=== PATIENT | female | born 1960 | race Asian ===

== ENCOUNTER → 2020-05-20 | Outpatient (CLI) | payer OTHER | LOC: COL.RAD 07:28 | DX: R10.84 Generalized abdominal pain (principal) ==

== ENCOUNTER → 2020-06-11 | Outpatient (CLI) | payer OTHER | LOC: COL.RAD 07:43 | DX: K21.9 Gastro-esophageal reflux disease without esophagitis (principal) ==

== ENCOUNTER → 2021-04-07 | Outpatient (CLI) | payer OTHER ==
[~2021-04-07] VITALS: Ht 177.8 cm; Wt 71.8 kg
[~2021-04-07] MED LIST: DIOVAN 40MG40 MG PO; JARDIANCE25 PO
[2021-04-07 10:42] VITALS: BP 154/94; PULSE 79
== END ==
LOC: COL.CARD 03-29 10:45
DX: E78.2 Mixed hyperlipidemia (principal); E78.00 Pure hypercholesterolemia, unspecified; E11.9 Type 2 diabetes mellitus without complications; R07.9 Chest pain, unspecified
CPT/HCPCS: A9500

== ENCOUNTER 2023-01-25 06:20 | Emergency (ER) | payer SELFPAY ==
[~2023-01-25] VITALS: Ht 177.8 cm; Wt 72.7 kg
[2023-01-25 06:44] LABS: BASO % 0.3 % (0.0-2.0); EOS # 0.1 K/mm3 (0.0-0.7); EOS % 1.2 % (0.0-4.0); GRAN # 5.8 K/mm3 (1.4-6.5); GRAN % 77.6 % (42.2-75.2); HEMOGLOBIN 12.8 g/dl (12.5-16.0); LYMPH # 1.1 K/mm3 (1.2-3.4); LYMPH % 14.2 % (20.0-51.0); MEAN CELL VOLUME 90 fl (80.0-100.0); MEAN CORPUSCULAR HEMOGLOBIN 31 pg (27-31); MEAN CORPUSCULAR HGB CONC 35 g/dl (33.0-37.0); MEAN PLATELET VOLUME 9.8 fl (7.4-10.4); MONO # 0.5 K/mm3 (0.1-0.6); MONO % 6.3 % (1.7-9.3); PLATELET COUNT 244 K/mm3 (130-400); RED BLOOD COUNT 4.07 M/mm3 (4.10-5.30); REDCELL DISTRIBUTION WIDTH-CV 13.4 % (11.5-14.5)
[2023-01-25 06:50] LABS: HEMATOCRIT 36.6 % (37.0-47.0)
[2023-01-25 06:51] LABS: INR 1.1 (0.8-3.0); PROTHROMBIN TIME 12.4 SECONDS (9.7-12.8)
[2023-01-25 06:54] LABS: PARTIAL THROMBOPLASTIN TIME 32.9 SECONDS (26.0-37.0)
[2023-01-25 07:02] LABS: ALANINE AMINOTRANSFERASE 76 U/L (0-55); ALBUMIN 4.3 gm/dL (3.4-4.8); ALKALINE PHOSPHATASE 87 U/L (40-150); ANION GAP 15 mmol/L (7-16); AST,SGOT 122 U/L (5-34); BILIRUBIN,TOTAL 0.5 mg/dL (0.2-1.2); BLOOD UREA NITROGEN 6 mg/dL (10-20); C-REACTIVE PROTEIN 2.45 mg/dL (0.00-0.50); CALCIUM 9.7 mg/dL (8.4-10.2); CARBON DIOXIDE 22 mmol/L (23-31); CHLORIDE 102 mmol/L (98-107); CREATININE, serum 0.83 mg/dL (0.57-1.11); GLUCOSE 135 mg/dL (70-99); POTASSIUM 3.8 mmol/L (3.5-4.5); SODIUM 139 mmol/L (136-145); TOTAL PROTEIN 7.6 gm/dL (6.2-8.1)
[2023-01-25 07:14] LABS: ERYTHROCYTE SEDIMENTATION RATE 20 mm/hr (0-30)
[2023-01-25 07:18] LABS: HIV 1/2 Antibodies Non-Reactive; HIV-1p24 Antigen Non-Reactive
[2023-01-25 07:21] LABS: TSH w REFLEX 1.392 uIU/mL (0.350-4.940)
[2023-01-25 07:22] LABS: TROPONIN-I < 0.010 ng/mL (0.00-0.033)
[2023-01-25] MEDS ORDERED: ALLEGRA ALLERG180 MG PO (07:51)
[2023-01-25] MEDS ORDERED: DIOVAN 160MG160 MG PO (07:52)
[2023-01-25] MEDS ORDERED: EXCEDRIN1 TAB PO (07:52)
[2023-01-25] MEDS ORDERED: NORVASC 5MG5 MG/TAB PO (07:53)
[2023-01-25] MEDS ORDERED: LYRICA 25MG CAP25 MG PO (07:53)
[2023-01-25] MEDS ORDERED: ZYRTEC 10MG10 MG PO (07:54)
[2023-01-25] MEDS ORDERED: LIPITOR20 MG PO (07:57)
[2023-01-25] MEDS ORDERED: EFFEXOR XR75 MG/CAP PO (07:57)
[2023-01-25] MEDS ORDERED: K-DUR20 MEQ PO (07:58)
[2023-01-25] MEDS ORDERED: VITAMIN D31000 I1 PO (07:59)
[2023-01-25] MEDS ORDERED: PHARMASSURE ZIN50 MG PO (07:59)
[2023-01-25] MEDS ORDERED: MAGNESIUM200 MG PO (08:00)
[2023-01-25] MEDS ORDERED: MELATONIN5 M1 PO (08:00)
[2023-01-25 08:15] VITALS: BP 167/87; PULSE 80; TEMP 98.9
== END 2023-01-25 08:32 | disposition other institution (70) ==
LOC: COL.ER 06:20
PROVIDERS: Emergency Medicine
DX: I10 Essential (primary) hypertension (principal); R50.9 Fever, unspecified; R21 Rash and other nonspecific skin eruption; R53.1 Weakness; R74.8 Abnormal levels of other serum enzymes; R79.82 Elevated C-reactive protein (CRP); D72.828 Other elevated white blood cell count; F17.210 Nicotine dependence, cigarettes, uncomplicated; Z86.16 Personal history of COVID-19
CPT/HCPCS: J2765; J3010; J7030

== ENCOUNTER → 2023-11-06 | Outpatient (CLI) | payer OTHER ==
[~2023-11-06] MED LIST changes: +ALLEGRA ALLERG180 MG PO; +DIOVAN 160MG160 MG PO; +EFFEXOR XR75 MG/CAP PO; +EXCEDRIN1 TAB PO; +K-DUR20 MEQ PO; +LIPITOR20 MG PO; +LYRICA 25MG CAP25 MG PO; +MAGNESIUM200 MG PO; +MELATONIN5 M1 PO; +NORVASC 5MG5 MG/TAB PO; +PHARMASSURE ZIN50 MG PO; +VITAMIN D31000 I1 PO; +ZYRTEC 10MG10 MG PO
== END ==
LOC: COL.RAD 10:09
DX: R51.9 Headache, unspecified (principal)